=== PATIENT | male | born 1980 | race Two or more races ===

== ENCOUNTER 2020-04-13 11:13 | Emergency (ER) | payer OTHER ==
[~2020-04-13] VITALS: Ht 180.3 cm; Wt 104.3 kg
[2020-04-13] MEDS ORDERED: HYDROMORPHONE 1 MG/1 ML DISP.SYRIN ONE (11:38)
[2020-04-13] MEDS ORDERED: ONDANSETRON 4 MG/2 ML VIAL ONE (11:38)
[2020-04-13] MEDS ORDERED: ONDANSETRON 4 MG/2 ML VIAL IM ONE (11:45)
[2020-04-13] MEDS ORDERED: HYDROMORPHONE 1 MG/1 ML DISP.SYRIN IM ONE (11:45)
--- NOTE | 2020-04-13 12:10 | NUR ---
[facility] provided for pt per request and md approval after the result of x-ray came back.
--- NOTE | 2020-04-13 13:22 | NUR ---
Patient discharged to home in stable condition. Written and verbal after care instructions given. Patient verbalizes understanding of instructions. Stressed follow up or return to ER for worsening s/s.pt walks in steady gait. pt is not driving.
[2020-04-13 13:23] VITALS: BP 119/81
== END 2020-04-13 13:45 | disposition home or self-care (01) ==
LOC: ER 11:13
DX: S49.92XA Unspecified injury of left shoulder and upper arm, initial encounter (principal); W18.30XA Fall on same level, unspecified, initial encounter; Y92.89 Other specified places as the place of occurrence of the external cause; Y99.8 Other external cause status; E11.9 Type 2 diabetes mellitus without complications
CPT/HCPCS: 29105; 73030; 82962; 96372; 99284; J1170; J2405; A4663